=== PATIENT | male | born 1985 ===

== ENCOUNTER 2024-03-15 01:33 | Emergency (ER) | payer MEDICAID, SELFPAY ==
--- NOTE | ~2024-03-15 | CT_ITS ---
EXAMINATION: CT ABDOMEN AND PELVIS WITHOUT CONTRAST CLINICAL INFORMATION: Abdominal pain. COMPARISON: None available. TECHNIQUE: Multidetector volumetric imaging was performed from the superior aspect of the liver through the pubic symphysis. Sagittal and coronal reformatted images were obtained on the technologist's workstation. This CT examination was performed using dose optimization techniques as appropriate, variously including the following: *Automated exposure control *Adjustment of mA and/or kV according to patient size (this includes techniques or standardized protocols for targeted exams where dose is matched to indication/reason for exam; i.e. extremities or head) *Use of iterative reconstruction technique DLP: 367 mGy-cm FINDINGS: LUNG BASES: The visualized lung bases are unremarkable. LIVER, GALLBLADDER, AND BILIARY TREE: The liver is normal in size, shape, and attenuation. No focal hepatic lesion or biliary ductal dilatation is present. The gallbladder is unremarkable with no evidence of radiopaque gallstones, gallbladder wall thickening, or obvious pericholecystic inflammatory changes. PANCREAS: Unremarkable. SPLEEN: Unremarkable. ADRENAL GLANDS: Unremarkable. KIDNEYS AND URETERS: The kidneys are normal in size, shape, and attenuation. There is a subcentimeter hypodensity lower pole left kidney too small to characterize but likely a small cyst. There are multiple scattered bilateral 1-2 mm renal calculi. There is mild left hydronephrosis and hydroureter to the level of a 3 mm proximal left ureteric calculus. BLADDER: Unremarkable. GASTROINTESTINAL TRACT: The small and large bowel are unremarkable. The appendix is not seen ABDOMINAL WALL: No significant hernia is appreciated. The right testicle appears retracted to the right groin region. LYMPH NODES: Normal. VASCULAR: Unremarkable. PELVIC VISCERA: Unremarkable. OSSEOUS STRUCTURES: Unremarkable. CT/CT abdomen pelvis wo IV con IMPRESSION: Bilateral nephrolithiasis. There is mild left hydronephrosis and hydroureter to the level of a 3 mm proximal left ureteric calculus. Retracted right testicle. Fleischner guidelines were followed.
[2024-03-15 02:18] VITALS: BP 154/94; PULSE 87; RESP 20; TEMP 36.8; O2SAT 100; BMI 26.6
[2024-03-15 02:23] LABS: MANUAL DIFF FLAG NO
[2024-03-15] MEDS: ondansetron HCL 4 MG/2 ML VIAL IVPUSH (02:23)
[2024-03-15 02:24] LABS: Basophils Percent Auto 0.3 % (0-2); Eosinophils Percent Auto 0.1 % (0-4); Hematocrit 41.3 % (42.0-52.0); Hemoglobin 14.8 g/dl (14.0-18.0); Imm Gran Abs Auto 0.06 X10*3/uL (0.00-0.03); Imm Gran Pct Auto 0.4 % (0.0-0.4); Lymphocytes Absolute Auto 1.2 X10*3/uL (1.2-4.9); Mean Corpuscular HGB Conc 35.8 g/dl (31.0-36.0); Mean Corpuscular Volume 89.4 fL (80.0-98.0); Mean Platelet Volume 10.4 fL (9.4-12.4); Monocytes Absolute Auto 0.6 X10*3/uL (0.1-1.2); Monocytes Percent Auto 3.7 % (2-11); Neutrophils Absolute Auto 13.1 x10*3/uL (2.0-8.3); Neutrophils Percent Auto 87.5 % (45-73); Platelet Count 204 X10*3/uL (160-400); Red Blood Count 4.62 X10*6/uL (4.60-5.80)
[2024-03-15 02:38] LABS: Alanine Aminotransferase 21 U/L (0-40); Albumin Level 4.8 g/dL (3.5-5.0); Alkaline Phosphatase 78 U/L (39-117); Anion Gap 16 (12-20); Aspartate Amino Transferase 24 U/L (5-37); Bilirubin Total 0.6 mg/dL (0.0-1.0); Blood Urea Nitrogen 9 mg/dL (9-16); Carbon Dioxide 24 mmol/L (22-29); Chloride 106 mmol/L (96-108); Creatinine Clr Calc Pharmacy 72.7; Estimated Glomerular Filt Rate > 60; Glucose Random 128 mg/dL (60-115); Lipase 23 U/L (8-78); Potassium 3.6 mmol/L (3.3-5.1); Sodium 142 mmol/L (135-145); Total Protein 7.5 g/dL (6.5-8.0)
[2024-03-15] MEDS: Ketorolac Tromethamine 30 MG/ML VIAL IVPUSH (02:55)
[2024-03-15 03:03] LABS: Appearance Urine Cloudy; Color Urine Yellow; Glucose Urine UA Negative (Negative); Leukocyte Esterase Urine Trace (Negative); Nitrite Urine Negative (Negative); Specific Gravity - Urine 1.025 (1.005-1.025); UMIC TRIGGER UACC YES; Urine Blood Large (3+) (Negative); Urine Ketones 40 mg/dL (Negative); Urine Protein 30 (1+) mg/dL (Neg-Trace)
[2024-03-15 03:06] LABS: Bacteria Urine None Seen (None Seen); Hyaline Casts Urine 0-2 /LPF (0-2); RBC Urine >20 /HPF (0-2); Squamous Epithelial Cell Urine 0-2 /HPF (0-2); WBC Urine 0-5 /HPF (0-5)
--- NOTE | 2024-03-15 04:04 | ED_ITS ---
HPI - Abdominal Pain General Chief Complaint: Abdominal Pain Stated Complaint: stomach/abd pain Time Seen by Provider: 03/15/24 02:21 Source: patient and family Mode of arrival: ambulatory Limitations: language barrier History of Present Illness ED Provider: Dr. Guerrier HPI narrative: patient was woken from sleep with left lower abdominal pain. He immediately started vomiting. States that he feels it going into his left testicle. Denies fever. MD elicited complaint: abdominal pain Onset (ago): hour(s) Pain Consistency: constant Radiation: LLQ Associated symptoms: nausea and vomiting Related Data Previous Rx's ?Medication ?Instructions ?Recorded naproxen 500 mg tablet (Naprosyn) 500 mg PO BID #20 tabs 03/15/24 ondansetron 4 mg disintegrating 4 mg PO Q8H PRN nausea and 03/15/24 tablet vomiting #20 tabs tamsulosin 0.4 mg capsule (Flomax) 0.4 mg PO BEDTIME #30 caps 03/15/24 Allergies Allergy/AdvReac Type Severity Reaction Status Date / Time No Known Allergies Allergy Verified 03/15/24 02:20 Review of Systems Review of Systems Yes all other systems are reviewed and are negative Denies Sensory deficit (Neuro) FOR[facility]LY [facility], [facility] Social History Social History Smoked in Last 30 Days: No Use of substances other than those prescribed or required for medical reasons: No Advance Directives: No Advance Directives Information Provided: Yes Do you have a plan to hurt others: No Plan Physical Exam ED Vital Signs: Vital Signs - 24 hr 03/15/24 02:18 03/15/24 04:29 Temperature 98.2 F 98.3 F Pulse Rate 87 81 Respiratory Rate 20 16 Blood Pressure 154/94 H 131/85 Pulse Oximetry 100 98 Oxygen Delivery Method Room Air Room Air BMI result Body Mass Index 26.6 Const Other: male in pain, pallor with vomiting Nutritional Appearance: average body habitus Orientation/consciousness: oriented to person and patient oriented x3 Limitations: no limitations HENMT Head: Yes normal to inspection Ears: external ears normal General nose exam: Normal external nose present Mouth: Normal oral and palatal mucosa present and oropharynx normal Throat: Yes posterior oropharynx normal Eyes General: appearance normal, both eyes and all related structures Neck Neck: Yes normal visual inspection Chest Chest palpation & inspection: normal inspection of the chest Resp Auscultation: clear to auscultation bilaterally Cardio Jugular venous distension: no JVD Rate: regular rate Rhythm: regular rhythm Heart sounds: S1 normal heart sound present and S2 normal heart sound present GI Other: minimal left flank tenderness Inspection: Yes normal to inspection Palpation (GI): Soft to palpation, nontender and No hepatosplenomegaly present Auscultation: normal bowel sounds General: Yes no CVA tenderness Back/Spine/Pelvis Back: no CVA tenderness Skin General skin exam: no rashes or lesions noted Neuro General: oriented to person and patient oriented x3 Cranial nerves: Yes CN's II-XII intact bilaterally Motor exam (neuro): 5/5 motor strength present throughout Sensory Exam: No Sensory deficit (Neuro) Extrem General: Yes normal to inspection Psych Appearance: grossly normal Course Reevaluation(s) Reevaluation #1: patient feeling better after being medicated Time: 04:08 Medical Decision Making Differential Diagnosis Differential Diagnoses: The differential diagnosis associated with the presentation includes (renal colic, pyelonephritis, hydronephrosis) Admission/Observation Consideration of admission/observation: Escalation of care including admission/observation considered (upon arrival patient was considered for admission) Lab Data 03/15/24 02:19 03/15/24 02:19 Labs: Lab Results 03/15/24 03/15/24 Range/Units 02:19 02:57 WBC 15.0 H (4.8-10.8) X10*3/uL RBC 4.62 (4.60-5.80) X10*6/uL Hgb 14.8 (14.0-18.0) g/dl Hct 41.3 L (42.0-52.0) % MCV 89.4 (80.0-98.0) fL MCH 32.0 (27.0-33.0) pg MCHC 35.8 (31.0-36.0) g/dl RDW 12.0 (11.0-16.0) % Plt Count 204 (160-400) X10*3/uL MPV 10.4 (9.4-12.4) fL Immature Gran % (Auto) 0.4 (0.0-0.4) % Neut % (Auto) 87.5 H (45-73) % Lymph % (Auto) 8.0 L (20-40) % Treasure % (Auto) 3.7 (2-11) % Eos % (Auto) 0.1 (0-4) % Baso % (Auto) 0.3 (0-2) % Lymph # (Auto) 1.2 (1.2-4.9) X10*3/uL Treasure # (Auto) 0.6 (0.1-1.2) X10*3/uL Eos # (Auto) 0.0 (0.0-0.4) X10*3/uL Baso # (Auto) 0.0 (0.0-0.2) X10*3/uL Abs Immat Gran (auto) 0.06 H (0.00-0.03) X10*3/uL Absolute Neuts (auto) 13.1 H (2.0-8.3) x10*3/uL Absolute Nucleated RBC 0.000 (0.0-0.012) X10*3/uL Nucleated RBC % (auto) 0.0 (0.0-0.2) /100WBC Sodium 142 (135-145) mmol/L Potassium 3.6 (3.3-5.1) mmol/L Chloride 106 (96-108) mmol/L Carbon Dioxide 24 (22-29) mmol/L Anion Gap 16 (12-20) BUN 9 (9-16) mg/dL Creatinine 1.18 (0.5-1.4) mg/dL Estim Creat Clear Calc 72.7 Estimated GFR > 60 Random Glucose 128 H (60-115) mg/dL Calcium 10.0 (8.4-10.2) mg/dL Total Bilirubin 0.6 (0.0-1.0) mg/dL AST 24 (5-37) U/L ALT 21 (0-40) U/L Alkaline Phosphatase 78 (39-117) U/L Total Protein 7.5 (6.5-8.0) g/dL Albumin 4.8 (3.5-5.0) g/dL Lipase 23 (8-78) U/L Urine Color Yellow Urine Appearance Cloudy Urine pH 7.0 (5.0-9.0) Ur Specific Fountain 1.025 (1.005-1.025) Urine Protein 30 (1+) H (Neg-Trace) mg/dL Urine Glucose (UA) Negative (Negative) mg/dL Urine Ketones 40 (Negative) mg/dL Urine Blood Large (3+) H (Negative) Urine Nitrite Negative (Negative) Ur Leukocyte Esterase Trace H (Negative) Urine RBC >20 H (0-2) /HPF Urine WBC 0-5 (0-5) /HPF Ur Squamous Epith Cells 0-2 (0-2) /HPF Urine Bacteria None Seen (None Seen) Hyaline Casts 0-2 (0-2) /LPF Independent Interpretation I performed an independent interpretation of an: CT Scan (left sided hydronephrosis seen) Independent Historian Clinical information obtained from an independent historian. History obtained from or confirmed by: Spouse Prescription Management I considered prescription management with: Antibiotic (no evidence of UTI) Medications Administered Discontinued Medications Generic Name Dose Route Start Last Admin Trade Name Freq PRN Reason Stop Dose Admin Ketorolac Tromethamine 30 mg 03/15/24 02:32 03/15/24 02:55 Ketorolac Tromethamine 30 Mg/Ml Vial IVPUSH 03/15/24 02:33 30 mg ONCE ONE Administration Ondansetron HCl 4 mg 03/15/24 02:16 03/15/24 02:23 Ondansetron Hcl 4 Mg/2 Ml Vial IVPUSH 03/15/24 02:17 4 mg ONCE ONE Administration Discharge Plan Discharge Clinical Impression: Calculus of kidney, Renal colic Patient Disposition: Home, Self-Care Instructions: Renal Colic (ED) Prescriptions: New naproxen [Naprosyn] 500 mg tablet 500 mg PO BID Qty: 20 0RF tamsulosin [Flomax] 0.4 mg capsule 0.4 mg PO BEDTIME Qty: 30 0RF ondansetron 4 mg tablet,disintegrating 4 mg PO Q8H PRN (Reason: nausea and vomiting) Qty: 20 0RF Referrals: Jake Ornelas MD [Physician] - 1 week Print Language: Kittitian
[2024-03-15 04:29] VITALS: BP 131/85; PULSE 81; RESP 16; TEMP 36.8; O2SAT 98
[2024-03-15 05:41] VITALS: BP 131/85; PULSE 81; RESP 16; TEMP 36.8; O2SAT 98
== END 2024-03-15 05:42 | disposition home or self-care (01) ==
PROVIDERS: Emergency Provider Emergency Medicine
DX: N20.0 Calculus of kidney (principal); R10.32 Left lower quadrant pain; Z79.899 Other long term (current) drug therapy
CPT/HCPCS: 36415; 74176; 80053; 81001; 83690; 85025; 96374; 96375; 99284; J1885; J2405

== ENCOUNTER → 2024-05-11 15:31 | Outpatient (BNVA) | payer MEDICAID, SELFPAY | PROVIDERS: Visit Provider Nurse Practitioner Family ==